=== PATIENT | female | born 1975 | race American Indian/Alaskan Native ===

== ENCOUNTER 2017-09-01 08:37 | Emergency (ER) | payer SELFPAY ==
[2017-09-01] MEDS ORDERED: ATIVAN ONE ×2 (18:10→21:16)
[2017-09-01] MEDS ORDERED: HALDOL ONE (20:21)
[2017-09-02] MEDS ORDERED: HALDOL ONE (07:12)
[2017-09-02] MEDS ORDERED: ATIVAN ONE (07:12)
== END 2017-09-01 09:00 | disposition left against medical advice (07) ==
LOC: ED 08:37
DX: R41.82 Altered mental status, unspecified (principal); Z53.21 Procedure and treatment not carried out due to patient leaving prior to being seen by health care provider
CPT/HCPCS: J1630; J2060